=== PATIENT | female | born 1985 | race African-American/Black ===

== ENCOUNTER 2018-02-14 11:04 | Emergency (ER) | payer OTHER ==
[~2018-02-14] VITALS: Ht 157.5 cm; Wt 51.7 kg
[2018-02-14 12:56] LABS: SOURCE URINE
[2018-02-14] MEDS ORDERED: KEFLEX500 MG PO (14:03)
[2018-02-14 14:15] VITALS: BP 112/65
[2018-02-16 13:17] LABS: CHLAMYDIA TRACHOMATIS NEGATIVE; NEISSERIA GONORRHOEAE NEGATIVE
[2018-02-16] MEDS ORDERED: PRENATAL TABLE1 EAC3 PO (20:11)
== END 2018-02-14 14:27 | disposition home or self-care (01) ==
LOC: EME 11:04
PROVIDERS: Physician Assistant Medical
PROC: 0U9L0ZZ Drainage of Vestibular Gland, Open Approach (ICD-10-PCS; principal; 2018-02-14)
DX: N75.1 Abscess of Bartholin's gland (principal); Z33.1 Pregnant state, incidental; F17.200 Nicotine dependence, unspecified, uncomplicated; Z91.040 Latex allergy status
CPT/HCPCS: 87070; 87075; 87205; 87491; 87591; 99281; 99284